=== PATIENT | male | born 1960 | race Caucasian/White ===

== ENCOUNTER 2021-04-03 10:53 | Day surgery (SDC) | payer MEDICARE, MEDICAID ==
[2021-03-30 16:40] LABS: BASOPHILS % (AUTO) 0.7 % (0-1); EOSINOPHILS # (AUTO) 0.3 X10'3 (0-0.9); EOSINOPHILS % (AUTO) 6.9 % (0-6); HEMATOCRIT 40.2 % (42.0-52.0); HEMOGLOBIN 13.7 g/dl (14.0-17.9); MEAN CORPUSCULAR HEMOGLOBIN 33.1 PG (27.0-31.0); MEAN CORPUSCULAR VOLUME 97.2 FL (78-98); MEAN PLATELET VOLUME 9.8 FL (7.4-10.4); MONOCYTES # (AUTO) 0.4 X10'3 (0-0.9); MONOCYTES % (AUTO) 11.8 % (2-12); NEUTROPHILS % (AUTO) 54.6 % (42-75); PLATELET COUNT 160 X10'3 (140-440); RED BLOOD COUNT 4.14 X10'6 (4.70-6.10); RED CELL DISTRIBUTION WIDTH 13.1 % (11.5-14.5); WHITE BLOOD COUNT 3.7 X10'3 (4.5-11.0)
[2021-03-30 16:51] LABS: ALBUMIN 3.8 G/DL (3.4-5.0); ANION GAP 7 (8-16); BLOOD UREA NITROGEN 17 MG/DL (7-18); BUN/CREATININE RATIO 21.3 (5.4-32.0); CALCIUM 8.2 MG/DL (8.5-10.1); CHLORIDE 106 MMOL/L (99-107); GLUCOSE 80 MG/DL (70-104); POTASSIUM 4.2 MMOL/L (3.5-5.1); SODIUM 142 MMOL/L (135-145); TOTAL CARBON DIOXIDE 28.8 MMOL/L (24-32); eGFR > 90 ML/MIN
[2021-03-30 16:53] LABS: PARTIAL THROMBOPLASTIN TIME 27 SECONDS (22-32)
[~2021-04-03] VITALS: Ht 172.7 cm; Wt 69.6 kg
[2021-04-03] VITALS (9 sets, daily range): BP systolic 98–118; BP diastolic 59–73
[2021-04-03] MEDS ORDERED: DILT-117 PO (11:26)
[2021-04-03] MEDS ORDERED: ROSU10TA28 PO (11:26)
[2021-04-03] MEDS ORDERED: BENA10TA74 PO (11:26)
[2021-04-03] MEDS ORDERED: BUSP7.5T5 PO (11:26)
[2021-04-03] MEDS ORDERED: TRAZ-256 PO (11:26)
[2021-04-03] MEDS ORDERED: SPIR25TA5 PO (11:26)
[2021-04-03] MEDS ORDERED: FLEC100T3 PO (11:26)
[2021-04-03] MEDS ORDERED: ASPI-1265 PO (11:28)
[2021-04-03] MEDS ORDERED: FLUO40CA10 PO (11:28)
[2021-04-03] MEDS ORDERED: LIDOcaine/PRILOcaine 5gm cream TP ONE (11:30)
[2021-04-03] MEDS ORDERED: normal saline 1,000 ML IV SCH (11:30)
[2021-04-03] MEDS ORDERED: diphenhydrAMINE 25mg capsule PO PRN (11:30)
[2021-04-03] MEDS ORDERED: LORazepam 0.5 MG tablet PO PRN (11:30)
[2021-04-03] MEDS ORDERED: verapamil 2.5 mg/ml inj IV ONE (12:50)
[2021-04-03] MEDS ORDERED: LIDOcaine 1% (10mg/ml)w/preservative injection 20ml MDV ONE (12:51)
[2021-04-03] MEDS ORDERED: midazolam 1 mg/ML 2ml injection ONE (12:51)
[2021-04-03] MEDS ORDERED: fentaNYL/PF 50MCG/1 ML 2ML syringe ONE (12:51)
[2021-04-03] MEDS ORDERED: heparin 1,000unit/ml 10ml vial 10 ML ONE (12:51)
[2021-04-03] MEDS ORDERED: iohexol 350MG/ML 100ml bottle IV ONE (12:51)
[2021-04-03] MEDS ORDERED: nitroGLYCERIN-Tridil 50MG/D5W 250 ML IV ONE (12:51)
[2021-04-03] MEDS ORDERED: nitroGLYCERIN 0.4mg SUBLingual tab SL PRN (14:05)
[2021-04-03] MEDS ORDERED: ondansetron/PF 4mg/2ml inj IV PRN (14:05)
[2021-04-03] MEDS ORDERED: proCHLORperazine 10 MG/2 ml inj IV PRN (14:05)
[2021-04-03] MEDS ORDERED: OXAZEpam 15mg capsule PO PRN (14:05)
== END 2021-04-03 16:25 | disposition home or self-care (01) ==
LOC: SSTAY O 10:53
PROVIDERS: ATTEND Internal Medicine Interventional Cardiology
DX: R94.39 Abnormal result of other cardiovascular function study (principal); I25.118 Atherosclerotic heart disease of native coronary artery with other forms of angina pectoris; I34.1 Nonrheumatic mitral (valve) prolapse; I70.0 Atherosclerosis of aorta; I48.0 Paroxysmal atrial fibrillation; I70.203 Unspecified atherosclerosis of native arteries of extremities, bilateral legs; F43.10 Post-traumatic stress disorder, unspecified; F41.9 Anxiety disorder, unspecified; I27.20 Pulmonary hypertension, unspecified; G47.27 Circadian rhythm sleep disorder in conditions classified elsewhere; Z88.8 Allergy status to other drugs, medicaments and biological substances; Z79.899 Other long term (current) drug therapy
CPT/HCPCS: 36415; 80048; 85025; 85610; 85730; 93005; 93458; 99152; C1769; C1894; J1644; J2001; J2250; J3010; J7030; Q0163; Q9967; A4620; J3490

== ENCOUNTER 2023-04-16 13:56 | Outpatient (CLI) | payer MEDICARE, MEDICAID ==
[~2023-04-16 13:56] MED LIST: ASPI-1265 PO; BENA10TA74 PO; BUSP7.5T5 PO; DILT-117 PO; FLEC100T3 PO; FLUO40CA10 PO; ROSU10TA28 PO; SPIR25TA5 PO; TRAZ-256 PO
== END 2023-04-16 23:59 | disposition home or self-care (01) ==
LOC: RAD 13:56
PROVIDERS: ATTEND Nurse Practitioner Family
DX: R13.11 Dysphagia, oral phase (principal); R49.0 Dysphonia; Z85.841 Personal history of malignant neoplasm of brain
CPT/HCPCS: 74230